=== PATIENT | female | born 1975 ===

== ENCOUNTER → 2018-04-27 13:50 | Outpatient (CLI) | payer OTHER | END | disposition home or self-care (01) | LOC: LAB 13:50 | DX: D68.0 Von Willebrand disease (principal); Z14.02 Symptomatic hemophilia A carrier ==

== ENCOUNTER → 2018-08-16 07:08 | Outpatient (CLI) | payer OTHER | END | disposition home or self-care (01) | LOC: LAB 07:08 | DX: Z14.02 Symptomatic hemophilia A carrier (principal); D68.0 Von Willebrand disease; D35.1 Benign neoplasm of parathyroid gland; E21.0 Primary hyperparathyroidism; D50.8 Other iron deficiency anemias; D51.8 Other vitamin B12 deficiency anemias ==

== ENCOUNTER 2019-02-23 06:35 | Day surgery (SDC) | payer OTHER ==
[2019-02-23] MEDS ORDERED: PERCOCET 5-3251 EACH PO (12:32)
== END 2019-02-23 15:00 | disposition home or self-care (01) ==
LOC: CIR.AMB 06:35
DX: E21.0 Primary hyperparathyroidism (principal); D35.1 Benign neoplasm of parathyroid gland

== ENCOUNTER 2019-08-24 05:18 | Day surgery (SDC) | payer OTHER ==
[~2019-08-24 05:18] MED LIST: CLARITIN10 M1 PO; DDAVP 0.0110 MCG/0.1 NASAL; FLONASE16 GM; PERCOCET 5-3251 EACH PO; SINGULAIR10 MG PO
[2019-08-24] MEDS ORDERED: ULTRAM50 MG PO (10:21)
== END 2019-08-24 11:55 | disposition home or self-care (01) ==
LOC: CIR.AMB 05:18
DX: D35.1 Benign neoplasm of parathyroid gland (principal)